=== PATIENT | male | born 1965 | race Caucasian/White ===

== ENCOUNTER 2018-11-16 14:09 | Emergency (ER) | payer BC ==
[2018-11-16 14:46] VITALS: BP 131/90
--- NOTE | 2018-11-16 15:27 | UC ---
General HPI - HPI Summary HPI Summary: 11/12 had fever and chills plus n/vx1 along with muscle aches. 11/13 felt better. 11/14 had recurrent fever, chills and bodyaches. he now reports feeling completely better. he did have an insect on his R upper back on 10/20/18 that his removed easily and had no rash. is uncertain ifit was a tick. she said it was not engorged and came off easily. they want to ensure this is not Lyme disease. no rash, fatigue, joint pains or neurological deficits. - History of Current Complaint Chief Complaint: UCGeneralIllness Stated Complaint: TICK CONCERN Time Seen by Provider: 11/16/18 15:06 Hx Obtained From: Patient, Family/Head Sampler Pain Intensity: 0 - Allergy/Home Medications Allergies/Adverse Reactions: Allergies Allergy/AdvReac Type Severity Reaction Status Date / Time No Known Allergies Allergy Verified 11/16/18 14:45 Home Medications: Home Medications Omeprazole 20 mg PO DAILY 11/16/18 [History Confirmed 11/16/18] PMH/Surg Hx/FS Hx/Imm Hx GI/ History: Gastroesophageal Reflux - Surgical History Surgical History: Yes Surgery Procedure, Year, and Place: 2002 RIGHT HIP PLATE AND PIN AND SCREWS [place] - Family History Known Family History: Positive: Non-Contributory - Social History Occupation: Employed Full-time Lives: With Family Alcohol Use: Daily Substance Use Type: None Smoking Status (MU): Light Every Day Tobacco Smoker - Immunization History Most Recent Tetanus Shot: INST TO CHECK WITH PCP Review of Systems All Other Systems Reviewed And Are Negative: No Skin: Negative: Rash ENT: Negative: Sore Throat, Ear Ache, Nasal Discharge Respiratory: Negative: Shortness Of Breath, Cough Gastrointestinal: Negative: Abdominal Pain, Diarrhea Motor: Negative: Decreased ROM, Weakness Musculoskeletal: Negative: Arthralgia Neurological: Negative: Headache Physical Exam Triage Information Reviewed: Yes Appearance: Well-Appearing Vital Signs: Initial Vital Signs Temp 98.5 F 11/16/18 14:41 Pulse 111 11/16/18 14:41 Resp 16 11/16/18 14:41 BP 131/90 11/16/18 14:41 Pulse Ox 98 11/16/18 14:41 Vital Signs Reviewed: Yes Eyes: Positive: Conjunctiva Clear ENT: Positive: Pharynx normal, TMs normal. Negative: Nasal congestion, Nasal drainage Neck: Positive: Supple, Nontender, No Lymphadenopathy Respiratory: Positive: Lungs clear, Normal breath sounds, No respiratory distress Cardiovascular: Positive: RRR, No Murmur. Negative: Tachycardia Abdomen Description: Positive: Nontender, No Organomegaly, Soft Bowel Sounds: Positive: Present Musculoskeletal: Positive: ROM Intact, No Edema Neurological: Positive: Alert Psychological: Positive: Normal Response To Family, Age Appropriate Behavior Skin Exam: Normal Skin: Negative: Rashes Course/Dx - Differential Dx - Multi-Symptom Differential Diagnoses: Other - exam her is reassuring. doubt lyme disease but will send out Lyme testing. - Diagnoses Provider Diagnosis: Normal exam Discharge - Sign-Out/Discharge Documenting (check all that apply): Patient Departure All imaging exams completed and their final reports reviewed: No Studies - Discharge Plan Condition: Stable Disposition: HOME Patient Education Materials: Lyme Disease (ED), Tick Bite (ED) Referrals: Vandana Cha NP [Primary Care Provider] - If Needed - Billing Disposition and Condition Condition: STABLE Disposition: Home
== END 2018-11-16 15:45 | disposition home or self-care (01) ==
LOC: UCCORT 14:09
DX: Z00.00 Encounter for general adult medical examination without abnormal findings (principal); K21.9 Gastro-esophageal reflux disease without esophagitis; F17.290 Nicotine dependence, other tobacco product, uncomplicated; Z79.899 Other long term (current) drug therapy
CPT/HCPCS: 36415; 86618; 99211; G0463